=== PATIENT | female | born 1995 | race Hispanic/Latino ===

== ENCOUNTER 2016-05-17 15:54 | Emergency (ER) | payer SELFPAY ==
[2016-05-17] MEDS ORDERED: SODIUM CHLORIDE 0.9% 1000ML 1,000 ML IVS ONE ×2 (16:09→17:20)
[2016-05-17] MEDS ORDERED: ONDANSETRON INJ 4 MG/2 ML VIAL IV ONE ×2 (16:09→18:08)
[2016-05-17] MEDS ORDERED: HYDROmorphone HCL INJ 2 MG/ML VIAL IV ONE (16:09)
--- NOTE | 2016-05-17 16:12 | ED.PDOC ---
History of Present Illness - General Chief Complaint: Abdominal Pain Stated Complaint: abd & back pain Time Seen by Provider: 05/17/16 15:56 Information Source: patient, RN notes reviewed, Vital Signs reviewed Exam Limitations: no limitations - History of Present Illness Initial Comments: Patient c/o abd and back pain for 1 week that worsened today. She thought she was but started her period today. No fever, + chills, + REED, no CP, no SOB except when pain is bad. Generalized abd pain with N/V X1. Urinary frequency but not painful. Abdominal Pain Onset Location: generalized abdomen, flank Pain Radiation: no radiation Quality: severe, cramping, sharpness, waxing/waning Timing/Duration: 1 week, getting worse Improving Factors: nothing Worsening Factors: nothing Associated Symptoms: back pain, fever/chills, headache, nausea/vomiting, shortness of breath Review of Systems - Review of Systems Constitutional: States: chills. Denies: diaphoresis, fever, malaise, weakness EENTM: States: no symptoms reported Respiratory: States: short of breath - but only when abd pain is bad. Denies: cough Cardiology: States: no symptoms reported. Denies: chest pain Gastrointestinal/Abdominal: States: see HPI, abdominal pain, nausea, vomiting Genitourinary: States: see HPI, frequency. Denies: dysuria, hematuria Musculoskeletal: States: no symptoms reported Skin: States: no symptoms reported Neurological: States: headache. Denies: numbness, paresthesia, tingling, tremors, weakness Endocrine: States: no symptoms reported Hematologic/Lymphatic: States: no symptoms reported Family Medical History - Family History Mother Hx Family Hypertension: Yes Physical Exam - Physical Exam General Appearance: Alert, No apparent distress, Well Developed, Well Groomed, Well Hydrated, Well Nourished Neck: non-tender, full range of motion, supple, normal inspection Respiratory: chest non-tender, lungs clear, normal breath sounds, no respiratory distress, no accessory muscle use Cardiovascular/Chest: regular rate, rhythm, no edema, no gallop, no JVD, no murmur Gastrointestinal/Abdominal: normal bowel sounds, guarding - generalized, tenderness - Diffuse Back Exam: CVA tenderness (R), CVA tenderness (L) Extremity: normal range of motion, non-tender, normal inspection, no pedal edema Neurologic: no motor/sensory deficits, alert, normal mood/affect, oriented x 3 Skin Exam: normal color, warm/dry Lymphatic: no adenopathy Comments: Vital Signs - 24 hr 05/17/16 05/17/16 16:05 17:05 Temperature 98.4 F Pulse Rate [ 91 H 80 Apical] Respiratory 20 16 Rate Blood Pressure 131/81 115/83 [Left Arm] O2 Sat by Pulse 95 100 Oximetry Progress - Progress Progress: 05/17/16 17:20 Still no urge to urinate after 1L of NS. Will give a second liter. 05/17/16 18:07 Urine shows moderate blood without nitrates or leukocytes. Will get CT to rule out kidney stone. Patient reports pain medication helped but her pain and nausea are coming back. Will give Toradol and a second dose of Zofran. - Results/Orders Results/Orders: Laboratory Tests 05/17/16 05/17/16 05/17/16 16:10 16:21 17:40 WBC 9.0 RBC 5.35 Hgb 15.2 Hct 44.9 MCV 83.9 MCH 28.5 MCHC 33.9 RDW 13.4 Plt Count 234 MPV 7.6 Absolute Neuts (auto) 6.70 Absolute Lymphs (auto) 1.50 Absolute Monos (auto) 0.60 Absolute Eos (auto) 0.10 Absolute Basos (auto) 0.10 Neutrophils % 75.0 Lymphocytes % 16.5 L Monocytes % 6.6 Eosinophils % 1.2 Basophils % 0.7 Sodium 138 Potassium 3.6 Chloride 104 Carbon Dioxide 27 Anion Gap 10.6 L BUN 12 Creatinine 0.45 L BUN/Creatinine Ratio 26.7 H Random Glucose 110 H Serum Osmolality 276.1 Calcium 9.7 Total Bilirubin 0.6 AST 17 ALT 17 Alkaline Phosphatase 67 L Serum Total Protein 7.8 Albumin 4.3 Globulin 3.5 Albumin/Globulin Ratio 1.2 Amylase 70 Lipase 34 Urine Color Yellow Urine Appearance Clear Urine pH 6.5 Ur Specific [place] 1.020 Urine Protein Negative Urine Glucose (UA) Negative Urine Ketones Negative Urine Blood Moderate H Urine Nitrite Negative Urine Bilirubin Negative Urine Urobilinogen 0.2 Ur Leukocyte Esterase Negative Urine RBC 3-5 H Urine WBC 0 Ur Epithelial Cells 0 Urine Bacteria Rare Urine HCG, Qual Negative - EKG/XRAY/CT CT Ordered: Yes - Abd/pelvis: nl, no kidney stone Departure - Departure Clinical Impression: Urinary tract infection Qualifiers: Urinary tract infection type: site unspecified Hematuria presence: with hematuria Qualifier Code: (N39.0) Urinary tract infection, site not specified Time of Disposition: 19:54 Disposition: Discharge to Home or Self Care Condition: Good Departure Forms: ED Discharge - Pt. Copy, Patient Portal Self Enrollment Instructions: DI for Urinary Tract Infection (UTI) Diet: resume usual diet Activity: increase activity as tolerated Prescriptions: Ondansetron [Zofran Odt] 4 mg PO Q6HRS PRN #12 tab PRN Reason: Nausea/Vomiting Sulfamethoxazole-Trimethoprim [Bactrim Ds 800-160 mg] 1 tab PO BID #14 tab Home Medications: Ambulatory Orders Ibuprofen [Advil] 200 mg PO PRN PRN 05/17/16 Ondansetron [Zofran Odt] 4 mg PO Q6HRS PRN #12 tab 05/17/16 Sulfamethoxazole-Trimethoprim [Bactrim Ds 800-160 mg] 1 tab PO BID #14 tab 05/17 Additional Instructions: Follow up with your physician in 3-5 days, sooner if new or worsening symptoms
[2016-05-17] MEDS ORDERED: KETOROLAC TROMETHAMINE INJ 30 MG/ML VIAL IV ONE (18:08)
--- NOTE | 2016-05-17 19:12 | CT ---
EXAM: Abdoment/Pelvis w/o Contrast CLINICAL INDICATION: 21-year-old female with generalized abdominal pain and hematuria. COMPARISON: None. EXAMINATION: CT of the abdomen and pelvis was performed without intravenous or oral contrast. Multiplanar reformatted images were provided. FINDINGS: Evaluation of solid organ pathology is limited secondary to lack of intravenous contrast. Within these limitations, the following observations are made. Chest: Evaluation through the lung bases reveals no focal opacity, pleural effusion or pneumothorax. Heart size is within normal limits. No pericardial effusion. Abdomen and pelvis: The liver, gallbladder, pancreas, spleen, bilateral kidneys and bilateral adrenal glands are within normal limits. The vessels are normal in caliber. No abdominopelvic lymph nodes are noted to be pathologically enlarged by CT measurement criteria. The bowel is within normal limits with extensive fecal debris present throughout the large bowel. There is no abnormal bowel wall thickness or bowel dilation. No free air. No free abdominopelvic fluid collections. The appendix is poorly visualized. The osseous structures are within normal limits. IMPRESSION: 1. No specific acute intra-abdominal findings are noted to suggest etiology of the patient's abdominal pain. 2. The appendix is poorly visualized. Electronically signed by: Charlotte Calvin MD 05/17/2016 7:11 PM CDT
[2016-05-17] MEDS ORDERED: SULFA/TRIMETH 800/160 (DS) TAB 1 EA TAB PO ONE (19:55)
[2016-05-17 20:08] VITALS: BP 127/76; TEMP 97.2; O2SAT 97
== END 2016-05-17 20:09 | disposition home or self-care (01) ==
LOC: ER 15:54
DX: N39.0 Urinary tract infection, site not specified (principal)
CPT/HCPCS: 36415; 74176; 80053; 81001; 81025; 82150; 83690; 85025; J1170; J1885; J2405; J7030

== ENCOUNTER 2016-07-21 15:29 | Emergency (ER) | payer SELFPAY ==
[2016-07-21 15:50] VITALS: TEMP 99.4; O2SAT 96
[2016-07-21] MEDS: ONDANSETRON ODT 8 MG TAB SL ONE (16:39)
--- NOTE | 2016-07-21 17:46 | ED.PDOC ---
History of Present Illness - General Chief Complaint: General Stated Complaint: missed period, rlq intermittent cramping x3 weeks Time Seen by Provider: 07/21/16 15:49 Source: patient Exam Limitations: no limitations - History of Present Illness Initial Comments: the patient is a 21-year-old female presenting to the emergency room secondary to abdominal and pelvic pain present for almost 2 weeks. She has had a mild vaginal discharge. She has also missed her last menstrual cycles. This is unusual for her. She did a urine test at home last week that was negative. No vomiting or nausea. No fevers. No diarrhea. No constipation. Timing/Duration: 1 week Severity: moderate Improving Factors: nothing Worsening Factors: nothing Associated Symptoms: denies symptoms Allergies/Adverse Reactions: Allergies NO KNOWN ALLERGY Allergy (Verified 05/17/16 18:03) Home Medications: Ambulatory Orders Ibuprofen [Advil] 200 mg PO PRN PRN 05/17/16 Ondansetron [Zofran Odt] 4 mg PO Q6HRS PRN #12 tab 05/17/16 Sulfamethoxazole-Trimethoprim [Bactrim Ds 800-160 mg] 1 tab PO BID #14 tab 05/17 Review of Systems - Review of Systems Constitutional: States: no symptoms reported EENTM: States: no symptoms reported Respiratory: States: no symptoms reported Cardiology: States: no symptoms reported Gastrointestinal/Abdominal: States: abdominal pain Genitourinary: States: discharge, pain Musculoskeletal: States: no symptoms reported Skin: States: no symptoms reported Neurological: States: no symptoms reported Endocrine: States: no symptoms reported All other Systems: No Change from Baseline Past Medical History (General) - Patient Medical History Hx Seizures: No Hx Asthma: Yes Hx Congestive Heart Failure: No Hx Diabetes: No Surgical History: no surgical history - Vaccination History Hx Tetanus, Diphtheria Vaccination: No Hx Influenza Vaccination: Yes Hx Pneumococcal Vaccination: No - Social History Hx Tobacco Use: No Hx Chewing Tobacco Use: No Hx Alcohol Use: No Hx Substance Use: No Hx Depression: No - Female History Hx Last Menstrual Period: 05/17/16 Patient : No - Started menstrual cycle today Family Medical History - Family History Mother Family History: No Known Hx Family Hypertension: Yes Physical Exam - Physical Exam General Appearance: Alert, Comfortable, No apparent distress Eye Exam: bilateral normal Ears, Nose, Throat: hearing grossly normal, normal ENT inspection, normal pharynx Neck: non-tender, full range of motion, supple, normal inspection Respiratory: chest non-tender, lungs clear, normal breath sounds, no respiratory distress, no accessory muscle use Cardiovascular/Chest: normal peripheral pulses, regular rate, rhythm, no edema Peripheral Pulses: radial,right: 2+, radial,left: 2+, dorsalis pedis,right: 2+, dorsalis pedis,left: 2+, posterior tibialis,right: 2+, posterior tibialis,left: 2+ Gastrointestinal/Abdominal: soft, other - the patient does have suprapubic discomfort to palpation. No obvious palpable masses. Rectal Exam: deferred, other - pelvic exam was performed. the patient does have mild cervical motion tenderness. She also has moderate discomfort palpation over the fundus. No definite rebound or peritoneal signs. swabs were taken. she does have a fairly thick white discharge. Back Exam: normal inspection, no CVA tenderness, no vertebral tenderness Extremity: normal range of motion, non-tender, normal inspection, no pedal edema , normal capillary refill Neurologic: solar tech II-XII nml as tested, alert, normal mood/affect, oriented x 3 Skin Exam: normal color Comments: Vital Signs - 24 hr 07/21/16 07/21/16 15:35 16:30 Temperature 99.4 F 99.4 F Pulse Rate [ 83 85 LEFT BRACHIAL] Respiratory 20 20 Rate Blood Pressure 136/80 126/78 [LEFT BRACHIAL] O2 Sat by Pulse 96 96 Oximetry Progress - Progress Progress: 07/21/16 17:50 the patient is a 21-year-old female presenting with a new diagnosis of along with pelvic pain and some vaginal discharge. she does appear to have a mild cervicitis and early pelvic inflammatory disease. Externally the patient does have a few spots that are consistent with a yeast infection. she did receive a dose of Diflucan here. the gonorrhea and chlamydia tests are send out tests and the patient is being dosed empirically with rocephin and azithromycin. Gestational sac size is consistent with the hCG level which is also consistent with a gestational age of approximately 4-1/2 weeks. she needs to avoid sex for the next 3 weeks. She needs to follow up with her primary care doctor on Friday for a repeat serum hCG, to make sure levels are rising appropriately, and the patient's discomfort is improving. ER warnings are given for any worsening. she needs to get set up with an special events fundraiser as well. She can also start taking gummy vitamins daily. - Results/Orders Results/Orders: Laboratory Tests 07/21/16 07/21/16 07/21/16 15:53 16:00 16:32 WBC RBC Hgb Hct MCV MCH MCHC RDW Plt Count MPV Absolute Neuts (auto) Absolute Lymphs (auto) Absolute Monos (auto) Absolute Eos (auto) Absolute Basos (auto) Neutrophils % Lymphocytes % Monocytes % Eosinophils % Basophils % PT 11.9 INR 1.050 PTT (SP) 31.7 Sodium Potassium Chloride Carbon Dioxide Anion Gap BUN Creatinine BUN/Creatinine Ratio Random Glucose Serum Osmolality Calcium Total Bilirubin AST ALT Alkaline Phosphatase Serum Total Protein Albumin Globulin Albumin/Globulin Ratio Beta HCG, Quant Urine Color Yellow Urine Appearance Clear Urine pH 5.0 Ur Specific [place] >= 1.030 Urine Protein Negative Urine Glucose (UA) Negative Urine Ketones Negative Urine Blood Negative Urine Nitrite Negative Urine Bilirubin Negative Urine Urobilinogen 0.2 Ur Leukocyte Esterase Negative Urine RBC 0 Urine WBC 0 Ur Epithelial Cells 1-3 Urine Bacteria 0 Urine HCG, Qual Positive 07/21/16 07/21/16 07/21/16 16:32 16:32 16:32 WBC 8.5 RBC 4.93 Hgb 13.9 Hct 41.3 MCV 83.7 MCH 28.3 MCHC 33.8 RDW 14.5 Plt Count 235 MPV 7.3 L Absolute Neuts (auto) 6.40 Absolute Lymphs (auto) 1.40 Absolute Monos (auto) 0.70 Absolute Eos (auto) 0.10 Absolute Basos (auto) 0.00 Neutrophils % 74.6 Lymphocytes % 16.7 L Monocytes % 7.7 Eosinophils % 0.6 L Basophils % 0.4 PT INR PTT (SP) Sodium 137 Potassium 3.5 L Chloride 106 Carbon Dioxide 24 Anion Gap 10.5 L BUN 12 Creatinine 0.52 L BUN/Creatinine Ratio 23.1 H Random Glucose 98 Serum Osmolality 273.6 L Calcium 9.0 Total Bilirubin 1.5 H AST 17 ALT 13 Alkaline Phosphatase 59 L Serum Total Protein 7.5 Albumin 4.1 Globulin 3.4 Albumin/Globulin Ratio 1.2 Beta HCG, Quant 1133.9 H Urine Color Urine Appearance Urine pH Ur Specific [place] Urine Protein Urine Glucose (UA) Urine Ketones Urine Blood Urine Nitrite Urine Bilirubin Urine Urobilinogen Ur Leukocyte Esterase Urine RBC Urine WBC Ur Epithelial Cells Urine Bacteria Urine HCG, Qual pelvic ultrasound shows a 4.5 mm intrauterine gestational sac. She does have a complex ovarian cyst on the right. No evidence of any extra uterine . No evidence of abscess formation. Departure - Departure Clinical Impression: Cervicitis, acute, non-specific Disposition: Discharge to Home or Self Care Condition: Fair Departure Forms: ED Discharge - Pt. Copy, Patient Portal Self Enrollment Instructions: DI for Acute Cervicitis Diet: regular diet Activity: increase activity as tolerated Home Medications: Ambulatory Orders Ibuprofen [Advil] 200 mg PO PRN PRN 05/17/16 Ondansetron [Zofran Odt] 4 mg PO Q6HRS PRN #12 tab 05/17/16 Sulfamethoxazole-Trimethoprim [Bactrim Ds 800-160 mg] 1 tab PO BID #14 tab 05/17 Additional Instructions: the patient is a 21-year-old female presenting with a new diagnosis of along with pelvic pain and some vaginal discharge. she does appear to have a mild cervicitis and early pelvic inflammatory disease. Externally the patient does have a few spots that are consistent with a yeast infection. she did receive a dose of Diflucan here. the gonorrhea and chlamydia tests are send out tests and the patient is being dosed empirically with rocephin and azithromycin. Gestational sac size is consistent with the hCG level which is also consistent with a gestational age of approximately 4-1/2 weeks. she needs to avoid sex for the next 3 weeks. She needs to follow up with her primary care doctor on Friday for a repeat serum hCG, to make sure levels are rising appropriately, and the patient's discomfort is improving. ER warnings are given for any worsening. she needs to get set up with an special events fundraiser as well. She can also start taking gummy vitamins daily.
[2016-07-21] MEDS: FLUCONAZOLE 100 MG TAB PO ONE (17:51)
[2016-07-21] MEDS: AZITHROMYCIN 250 MG TAB PO ONE (17:52)
--- NOTE | 2016-07-21 17:58 | US ---
EXAM: Pelvic,Non-OB CLINICAL INDICATION: 21-year-old female with abdominal pain and positive hCG. LMP 05/10/2016. Quantitative beta hCG 1100. COMPARISON: None. TECHNIQUE: Limited transvaginal imaging was performed per service request. Transabdominal imaging was not performed. FINDINGS: The uterus measures 8.9 x 6.1 x 5.3 cm. Focal area of echogenicity is identified present at the uterine fundus, a finding which may represent gestational sac measuring 3 mm corresponding to gestational age of four weeks and six days. No intrauterine gestational contents are identified including yolk sac or pole. The ovaries have a normal sonographic appearance. The right ovary measures 28 x 39 x 18 mm. Focal area of echogenicity present within the RIGHT ovary measuring 17 mm with rim of increased echogenicity may represent a corpus luteum. The left ovary measures 23 x 14 x 22 mm. No adnexal masses are identified. No free pelvic fluid is seen. IMPRESSION: 1. Possible very small intrauterine gestational sac measuring 3 mm corresponding to gestational age of four weeks and six days. Pseudogestational sac in the setting of ectopic is considered in the differential. 2. No additional intrauterine gestational contents are identified including yolk sac or pole at this time. Differential considerations may include too early to characterize, failed first trimester and ectopic . Correlation with beta hCG levels and serial sonography is recommended. Electronically signed by: Charlotte Calvin MD 07/21/2016 5:58 PM CDT Workstation: [id number]
[2016-07-21] MEDS: cefTRIAXone SODIUM 1 GM VIAL IM ONE (18:03)
[2016-07-21 18:28] VITALS: BP 124/72
[2016-07-21] MEDS ORDERED: LIDOCAINE 1% 10 ML VIAL INJ ONE (19:22)
== END 2016-07-21 18:25 | disposition home or self-care (01) ==
LOC: ER 15:29
DX: O23.511 Infections of cervix in pregnancy, first trimester (principal); O34.81 Maternal care for other abnormalities of pelvic organs, first trimester; N83.201 Unspecified ovarian cyst, right side; Z3A.00 Weeks of gestation of pregnancy not specified
CPT/HCPCS: 36415; 76856; 80053; 81001; 81025; 84702; 85025; 85610; 85730; 87210; 87491; 87591; J0696; Q0144

== ENCOUNTER 2016-07-26 12:22 | Emergency (ER) | payer MEDICAID ==
--- NOTE | 2016-07-26 12:53 | ED.PDOC ---
History of Present Illness - General Chief Complaint: Problem Stated Complaint: Thick white vaginal discharge that is worsening Time Seen by Provider: 07/26/16 12:43 Source: patient, RN notes reviewed, Vital Signs reviewed, old records Exam Limitations: no limitations - History of Present Illness Initial Comments: Patient here with c/o a thick, white vaginal discharge that has worsened over the past week. She was seen here ~1 week ago with negative wet prep. She was unable to see OB due to not having her Medicaid # yet. She is rescheduled for Friday. She also is reporting that her throat has been really dry. Not painful. She thinks it is due to the weather but does not know what she can take. She is ~5 weeks . Timing/Duration: week, getting worse Quality: moderate Onset Location: vaginal Radiation: none Activites at Onset: none Sexual intercourse history: single partner Improving Factors: nothing Worsening Factors: nothing Associated Symptoms: denies symptoms Allergies/Adverse Reactions: Allergies NO KNOWN ALLERGY Allergy (Verified 05/17/16 18:03) Home Medications: Ambulatory Orders Ibuprofen [Advil] 200 mg PO PRN PRN 05/17/16 Ondansetron [Zofran Odt] 4 mg PO Q6HRS PRN #12 tab 05/17/16 Sulfamethoxazole-Trimethoprim [Bactrim Ds 800-160 mg] 1 tab PO BID #14 tab 05/17 Clotrimazole Vaginal [Clotrimazole] 2 % VAG QPM #1 tube 07/26/16 Vitamin [Calna] 1 tab PO DAILY #90 tab 07/26/16 Review of Systems - Review of Systems Constitutional: States: no symptoms reported EENTM: States: see HPI. Denies: throat pain, throat swelling Respiratory: States: no symptoms reported Cardiology: States: no symptoms reported Gastrointestinal/Abdominal: States: no symptoms reported Genitourinary: States: see HPI, discharge - Thick with lots of white chunks All other Systems: No Change from Baseline Past Medical History (General) - Patient Medical History Hx Seizures: No Hx Asthma: Yes Hx Congestive Heart Failure: No Hx Diabetes: No - Vaccination History Hx Tetanus, Diphtheria Vaccination: No Hx Influenza Vaccination: Yes Hx Pneumococcal Vaccination: No - Social History Hx Tobacco Use: No Hx Chewing Tobacco Use: No Hx Alcohol Use: No Hx Substance Use: No Hx Depression: No - Female History Hx Last Menstrual Period: 05/17/16 Patient : No - Started menstrual cycle today Family Medical History - Family History Mother Family History: No Known Hx Family Hypertension: Yes Physical Exam - Physical Exam General Appearance: Alert, Comfortable, No apparent distress, Well Developed, Well Groomed, Well Hydrated, Well Nourished Eyes, Ears, Nose, Throat Exam: normal ENT inspection, pharynx normal Neck: full range of motion, supple, other - No cervical adenopathy Neurologic: alert, normal mood/affect, oriented x 3 Skin Exam: normal color, warm/dry Progress - Progress Progress: 07/26/16 12:56 Will defer pelvic exam at this time as she had one 1 week ago. Will treat with vaginal Clotrimazole and start vitamins Recommended Benadryl and lozenges for throat. Patient is in agreement with plan Departure - Departure Clinical Impression: Candidiasis of vagina, , Allergic pharyngitis Time of Disposition: 12:57 Disposition: Discharge to Home or Self Care Condition: Good Departure Forms: ED Discharge - Pt. Copy, Patient Portal Self Enrollment Instructions: DI for Vaginal Yeast Infection Diet: resume usual diet Activity: increase activity as tolerated Prescriptions: Clotrimazole Vaginal [Clotrimazole] 2 % VAG QPM #1 tube Vitamin [Calna] 1 tab PO DAILY #90 tab Home Medications: Ambulatory Orders Ibuprofen [Advil] 200 mg PO PRN PRN 05/17/16 Ondansetron [Zofran Odt] 4 mg PO Q6HRS PRN #12 tab 05/17/16 Sulfamethoxazole-Trimethoprim [Bactrim Ds 800-160 mg] 1 tab PO BID #14 tab 05/17 Clotrimazole Vaginal [Clotrimazole] 2 % VAG QPM #1 tube 07/26/16 Vitamin [Calna] 1 tab PO DAILY #90 tab 07/26/16 Additional Instructions: Keep scheduled follow up with OB next week.
[2016-07-26 12:56] VITALS: BP 135/74; TEMP 98.8
[2016-07-26 17:23] VITALS: O2SAT 95
== END 2016-07-26 13:30 | disposition home or self-care (01) ==
LOC: ER 12:22
DX: O98.811 Other maternal infectious and parasitic diseases complicating pregnancy, first trimester (principal); J02.9 Acute pharyngitis, unspecified; J45.909 Unspecified asthma, uncomplicated; B37.3 Candidiasis of vulva and vagina; Z3A.01 Less than 8 weeks gestation of pregnancy

== ENCOUNTER 2016-08-07 00:11 | Emergency (ER) | payer MEDICAID ==
--- NOTE | 2016-08-07 00:18 | ED.PDOC ---
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 Timing/Duration: other - 2 days ago Quality: mild, cramping Radiation: none Activites at Onset: none Prior abdominal problems: none Sexual intercourse history: single partner Improving Factors: nothing Worsening Factors: nothing Associated Symptoms: denies symptoms Allergies/Adverse Reactions: Allergies NO KNOWN ALLERGY Allergy (Verified 08/07/16 00:26) Home Medications: Ambulatory Orders Vitamin [Calna] 1 tab PO DAILY #90 tab 07/26/16 Review of Systems - Review of Systems Constitutional: States: no symptoms reported EENTM: States: no symptoms reported Respiratory: States: no symptoms reported Cardiology: States: no symptoms reported Gastrointestinal/Abdominal: States: no symptoms reported Genitourinary: States: see HPI Musculoskeletal: States: no symptoms reported Skin: States: no symptoms reported Neurological: States: no symptoms reported Endocrine: States: no symptoms reported Hematologic/Lymphatic: States: no symptoms reported Past Medical History (General) - Patient Medical History Hx Seizures: No Hx Asthma: Yes Hx Congestive Heart Failure: No Hx Diabetes: No - Vaccination History Hx Tetanus, Diphtheria Vaccination: No Hx Influenza Vaccination: Yes Hx Pneumococcal Vaccination: No - Social History Hx Tobacco Use: No Hx Chewing Tobacco Use: No Hx Alcohol Use: No Hx Substance Use: No Hx Depression: No - Activities of Daily Living Patient Lives Alone: No - family - Female History Hx Last Menstrual Period: 06/05/16 Patient : Yes - 8 weeks ega Family Medical History - Family History Mother Family History: No Known Hx Family Hypertension: Yes - mom Physical Exam - Physical Exam General Appearance: Alert, Comfortable, No apparent distress Eyes, Ears, Nose, Throat Exam: PERRL/EOMI, normal ENT inspection Neck: non-tender, full range of motion, supple Cardiovascular/Respiratory: regular rate, rhythm, no M/R/G, normal peripheral pulses, normal breath sounds Gastrointestinal/Abdominal: normal bowel sounds, non tender, soft, no organomegaly Pelvic Exam: external exam normal, speculum exam normal, no cerv. 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 - Results/Orders Results/Orders: Laboratory Tests 08/07/16 08/07/16 08/07/16 00:25 00:25 00:25 WBC 9.2 RBC 5.02 Hgb 14.0 Hct 42.0 MCV 83.6 MCH 27.8 MCHC 33.3 RDW 14.1 Plt Count 282 MPV 7.6 Absolute Neuts (auto) 5.60 Absolute Lymphs (auto) 2.50 Absolute Monos (auto) 0.80 Absolute Eos (auto) 0.20 Absolute Basos (auto) 0.10 Neutrophils % 60.7 Lymphocytes % 27.5 Monocytes % 9.1 H Eosinophils % 2.0 Basophils % 0.7 Sodium 135 Potassium 3.3 L Chloride 104 Carbon Dioxide 25 Anion Gap 9.3 L BUN 13 Creatinine 0.52 L BUN/Creatinine Ratio 25.0 H Random Glucose 96 Serum Osmolality 270.1 L Calcium 9.3 Beta HCG, Quant Urine Color Urine Appearance Urine pH Ur Specific [place] Urine Protein Urine Glucose (UA) Urine Ketones Urine Blood Urine Nitrite Urine Bilirubin Urine Urobilinogen Ur Leukocyte Esterase Urine RBC Urine WBC Ur Epithelial Cells Urine Bacteria Patient ABO/Rh O POSITIVE 08/07/16 08/07/16 00:25 00:37 WBC RBC Hgb Hct MCV MCH MCHC RDW Plt Count MPV Absolute Neuts (auto) Absolute Lymphs (auto) Absolute Monos (auto) Absolute Eos (auto) Absolute Basos (auto) Neutrophils % Lymphocytes % Monocytes % Eosinophils % Basophils % Sodium Potassium Chloride Carbon Dioxide Anion Gap BUN Creatinine BUN/Creatinine Ratio Random Glucose Serum Osmolality Calcium Beta HCG, Quant 85650.0 H Urine Color Yellow Urine Appearance Clear Urine pH 6.0 Ur Specific [place] 1.015 Urine Protein Negative Urine Glucose (UA) Negative Urine Ketones 15 H Urine Blood Large H Urine Nitrite Negative Urine Bilirubin Negative Urine Urobilinogen 0.2 Ur Leukocyte Esterase Negative Urine RBC 5-10 H Urine WBC 0-1 Ur Epithelial Cells 3-5 Urine Bacteria 1+ Patient ABO/Rh Departure - Departure Clinical Impression: Threatened , with 8 completed weeks gestation Time of Disposition: 02:12 Disposition: Discharge to Home or Self Care Condition: Fair Departure Forms: ED Discharge - Pt. 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
[2016-08-07] MEDS ORDERED: LACTATED RINGERS 1,000 ML IVS ONE (00:19)
[2016-08-07 00:26] VITALS: TEMP 98.4
[2016-08-07 02:24] VITALS: BP 110/65; O2SAT 98
== END 2016-08-07 02:24 | disposition home or self-care (01) ==
LOC: ER 00:11
DX: O20.0 Threatened abortion (principal); Z3A.08 8 weeks gestation of pregnancy
CPT/HCPCS: 36415; 80048; 81001; 84702; 85025; 86900; 86901; J7120

== ENCOUNTER → 2016-08-09 | Outpatient (CLI) | payer MEDICAID | END | disposition home or self-care (01) | LOC: LAB.O 08:37 | PROVIDERS: ATTEND Obstetrics & Gynecology | DX: O20.0 Threatened abortion (principal) ==

== ENCOUNTER 2016-08-14 07:01 | Emergency (ER) | payer MEDICAID ==
--- NOTE | 2016-08-14 07:30 | ED.PDOC ---
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 She saw her OB who per patient told her if she was having pain this morning to go to ER in [place]. This morning she is having bleeding and cramping with burning pain. She used 3 pads overnight. She is concerned about the pain but has only taken one menstrual cramping pill, yesterday. She does report her pain/cramping is not as bad as it was yesterday. Timing/Duration: yesterday, other - improving Quality: severe, burning, cramping Onset Location: suprapubic Radiation: none Prior abdominal problems: similar symptoms Sexual intercourse history: single partner Improving Factors: nothing Worsening Factors: nothing Associated Symptoms: denies symptoms Allergies/Adverse Reactions: Allergies NO KNOWN ALLERGY Allergy (Verified 08/07/16 00:26) Home Medications: Ambulatory Orders Vitamin [Calna] 1 tab PO DAILY #90 tab 07/26/16 Review of Systems - Review of Systems Constitutional: States: no symptoms reported EENTM: States: no symptoms reported Respiratory: States: no symptoms reported Cardiology: States: no symptoms reported Gastrointestinal/Abdominal: States: see HPI Genitourinary: States: see HPI. Denies: dysuria, frequency Musculoskeletal: States: no symptoms reported Skin: States: no symptoms reported Neurological: States: no symptoms reported All other Systems: No Change from Baseline Past Medical History (General) - Patient Medical History Hx Seizures: No Hx Stroke: No Hx Dementia: No Hx Asthma: Yes Hx of COPD: No Hx Cardiac Disorders: No Hx Congestive Heart Failure: No Hx Pacemaker: No Hx Hypertension: No Hx Thyroid Disease: No Hx Diabetes: No Hx Gastroesophageal Reflux: No Hx Renal Disease: No Hx of HIV: No Hx MRSA: No - Vaccination History Hx Tetanus, Diphtheria Vaccination: No Hx Influenza Vaccination: Yes Hx Pneumococcal Vaccination: No - Social History Hx Tobacco Use: No Hx Chewing Tobacco Use: No Hx Alcohol Use: No Hx Substance Use: No Hx Substance Use Treatment: No Hx Depression: No Hx Physical Abuse: No Hx Emotional Abuse: No Hx Suspected Abuse: No - Female History Hx Last Menstrual Period: 06/05/16 Patient : Yes - 8 weeks ega Expected Date of Delivery:: 03/23/17 Family Medical History - Family History Mother Family History: No Known Living Status: Still Living Hx Family Hypertension: Yes - mom Physical Exam - Physical Exam General Appearance: Alert, Comfortable, No apparent distress, Well Developed, Well Groomed, Well Hydrated, Well Nourished Neck: full range of motion, supple, normal inspection Cardiovascular/Respiratory: no respiratory distress Gastrointestinal/Abdominal: normal bowel sounds, soft, no organomegaly, no pulsatile mass, tenderness - Mild, suprapubic without guarding or rebound Pelvic Exam: other - defered due to recent miscarriage and exam by OB Neurologic: alert, normal mood/affect, oriented x 3 Skin Exam: normal color, warm/dry Departure - Departure Clinical Impression: Miscarriage Time of Disposition: 07:32 Disposition: Discharge to Home or Self Care Condition: Fair Instructions: DI for Miscarriage Diet: resume usual diet Activity: increase activity as tolerated Referrals: SANDIE ZAPATA MD/OBGYN [Primary Care Provider] - 1-5 Days Home Medications: Ambulatory Orders Vitamin [Calna] 1 tab PO DAILY #90 tab 07/26/16 Additional Instructions: Call OB this morning for further instructions/advise and possible follow up
[2016-08-14 07:32] VITALS: BP 121/84; TEMP 98.1; O2SAT 95
== END 2016-08-14 08:15 | disposition home or self-care (01) ==
LOC: ER 07:01
DX: O03.9 Complete or unspecified spontaneous abortion without complication (principal); J45.909 Unspecified asthma, uncomplicated

== ENCOUNTER 2016-08-17 08:48 | Emergency (ER) | payer MEDICAID ==
--- NOTE | 2016-08-17 09:09 | ED.PDOC ---
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 Timing/Duration: other - 5 days ago Quality: cramping, waxing/waning Onset Location: other - uterus Radiation: none Activites at Onset: none Prior abdominal problems: similar symptoms - see hpi Allergies/Adverse Reactions: Allergies NO KNOWN ALLERGY Allergy (Verified 08/07/16 00:26) Home Medications: Ambulatory Orders Vitamin [Calna] 1 tab PO DAILY #90 tab 07/26/16 Review of Systems - Review of Systems Constitutional: States: no symptoms reported EENTM: States: no symptoms reported Respiratory: States: no symptoms reported Cardiology: States: no symptoms reported Gastrointestinal/Abdominal: States: no symptoms reported Genitourinary: States: see HPI Musculoskeletal: States: no symptoms reported Skin: States: no symptoms reported Neurological: States: no symptoms reported Endocrine: States: no symptoms reported Past Medical History (General) - Patient Medical History Hx Seizures: No Hx Stroke: No Hx Dementia: No Hx Asthma: Yes Hx of COPD: No Hx Cardiac Disorders: No Hx Congestive Heart Failure: No Hx Pacemaker: No Hx Hypertension: No Hx Thyroid Disease: No Hx Diabetes: No Hx Gastroesophageal Reflux: No Hx Renal Disease: No Hx of HIV: No Hx MRSA: No Surgical History: no surgical history - Vaccination History Hx Tetanus, Diphtheria Vaccination: No Hx Influenza Vaccination: Yes Hx Pneumococcal Vaccination: No - Social History Hx Tobacco Use: No Hx Chewing Tobacco Use: No Hx Alcohol Use: No Hx Substance Use: No Hx Substance Use Treatment: No Hx Depression: No Hx Physical Abuse: No Hx Emotional Abuse: No Hx Suspected Abuse: No - Activities of Daily Living Patient Lives Alone: No - - Female History Hx Last Menstrual Period: 06/05/16 Patient : Yes - 10 weeks ega Expected Date of Delivery:: 03/23/17 Hx Gestational Age: 10 - weeks Family Medical History - Family History Mother Family History: No Known Living Status: Still Living Hx Family Hypertension: Yes - mom Physical Exam - Physical Exam General Appearance: Alert, Comfortable, No apparent distress Eyes, Ears, Nose, Throat Exam: PERRL/EOMI, normal ENT inspection, TMs normal Neck: non-tender, full range of motion, supple Cardiovascular/Respiratory: regular rate, rhythm, no M/R/G, normal peripheral pulses, no JVD, no respiratory distress Gastrointestinal/Abdominal: normal bowel sounds, soft, no organomegaly, tenderness - lower abdomen,uterus firm Pelvic Exam: other - declined exam wants to go to her ob in [facility] Exam: normal inspection, no CVA tenderness Extremity: normal range of motion, non-tender, no pedal edema, no calf tenderness Neurologic: alert, normal mood/affect, oriented x 3 Skin Exam: normal color, warm/dry Lymphatic: no adenopathy Progress - Progress Progress: 08/17/16 09:32 Vital Signs - 8 hr 08/17/16 09:05 Temperature 97.6 F Pulse Rate [ 75 left brachial] Respiratory 20 Rate Blood Pressure 121/64 [left brachial] O2 Sat by Pulse 97 Oximetry 08/17/16 09:32 Patient wants to leave AMA and go see her OB in [facility] ,declined to have blood drawn. 08/17/16 09:36 Departure - Departure Clinical Impression: Spontaneous in first trimester Time of Disposition: 09:35 - LEFT AMA WANTS TO GO TO SEE HER OB IN [place], [place] DR. ZAPATA Disposition: Left Against Medical Advice Condition: Fair Departure Forms: Patient Portal Self Enrollment Referrals: SANDIE ZAPATA MD/OBGYN [Primary Care Provider] - 1-2 Weeks Home Medications: Ambulatory Orders Vitamin [Calna] 1 tab PO DAILY #90 tab 07/26/16
[2016-08-17] MEDS ORDERED: KETOROLAC TROMETHAMINE INJ 30 MG/ML VIAL IV ONE (09:10)
[2016-08-17 09:12] VITALS: BP 121/64; TEMP 97.6; O2SAT 97
== END 2016-08-17 09:26 | disposition left against medical advice (07) ==
LOC: ER 08:48
DX: O03.9 Complete or unspecified spontaneous abortion without complication (principal); J45.909 Unspecified asthma, uncomplicated; Z53.29 Procedure and treatment not carried out because of patient's decision for other reasons

== ENCOUNTER 2016-11-09 23:52 | Emergency (ER) | payer MEDICAID ==
[2016-11-10 00:18] VITALS: TEMP 98.5
[2016-11-10] MEDS ORDERED: LIDOCAINE 1% W/ EPINEPHRINE 20 ML VIAL INJ ONE ×2 (00:34→01:26)
[2016-11-10] MEDS ORDERED: CHLORHEXIDINE GLUCONATE 4 % 15 ML UD TOP ONE (00:34)
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
[2016-11-10] MEDS ORDERED: NEOMYCIN-BACITRACIN-POLYMYXIN 0.9 GM UD TOP ONE (01:25)
[2016-11-10 01:57] VITALS: BP 123/72; O2SAT 97
== END 2016-11-10 01:45 | disposition home or self-care (01) ==
LOC: ER 23:52
DX: O26.899 Other specified pregnancy related conditions, unspecified trimester (principal); S81.811A Laceration without foreign body, right lower leg, initial encounter; S10.91XA Abrasion of unspecified part of neck, initial encounter; S00.83XA Contusion of other part of head, initial encounter; Z3A.00 Weeks of gestation of pregnancy not specified; Y09 Assault by unspecified means; Y92.9 Unspecified place or not applicable

== ENCOUNTER 2016-11-22 10:00 | Emergency (ER) | payer MEDICAID, OTHER ==
--- NOTE | 2016-11-22 10:56 | ED.PDOC ---
History of Present Illness - General Chief Complaint: GI Problem Time Seen by Provider: 11/22/16 10:52 Source: patient Exam Limitations: no limitations - History of Present Illness Initial Comments: Patient presents with multiple episodes of nausea and vomiting since last night. She also has intermittent abdominal cramping that is not related to a vomiting episode. Last week she had diarrhea "all week". Non-bloody. No dysuria , anuria, hematuria, nocturia. No recent travel nor new eating establishments. No similarly sick contacts. No fever. No other complaints. Timing/Duration: 1 week Severity: moderate Improving Factors: nothing, eating Associated Symptoms: nausea/vomiting Allergies/Adverse Reactions: Allergies NO KNOWN ALLERGY Allergy (Verified 08/07/16 00:26) Home Medications: Ambulatory Orders Ondansetron [Zofran Odt] 4 mg PO Q4HR PRN #10 tab 11/22/16 Review of Systems - Review of Systems Constitutional: States: no symptoms reported EENTM: States: no symptoms reported Respiratory: States: no symptoms reported Cardiology: States: no symptoms reported Gastrointestinal/Abdominal: States: see HPI Genitourinary: States: no symptoms reported Musculoskeletal: States: no symptoms reported Skin: States: no symptoms reported Neurological: States: no symptoms reported Endocrine: States: no symptoms reported Hematologic/Lymphatic: States: no symptoms reported Past Medical History (General) - Patient Medical History Hx Seizures: No Hx Stroke: No Hx Dementia: No Hx Asthma: Yes Hx of COPD: No Hx Cardiac Disorders: No Hx Congestive Heart Failure: No Hx Pacemaker: No Hx Hypertension: No Hx Thyroid Disease: No Hx Diabetes: No Hx Gastroesophageal Reflux: No Hx Renal Disease: No Hx Cancer: No Hx of HIV: No Hx Hepatitis C: No Hx MRSA: No Surgical History: no surgical history - Vaccination History Hx Tetanus, Diphtheria Vaccination: Yes Hx Influenza Vaccination: No Hx Pneumococcal Vaccination: No - Social History Hx Tobacco Use: No Hx Chewing Tobacco Use: No Hx Alcohol Use: Yes Hx Substance Use: No Hx Substance Use Treatment: No Hx Depression: No Hx Physical Abuse: No Hx Emotional Abuse: No Hx Suspected Abuse: No - Female History Hx Last Menstrual Period: 06/05/16 Patient : Yes Expected Date of Delivery:: 03/23/17 Hx Gestational Age: 10 - weeks Family Medical History - Family History Mother Family History: No Known Living Status: Still Living Hx Family Hypertension: Yes - mom Physical Exam - Physical Exam General Appearance: Alert Respiratory: lungs clear, normal breath sounds Cardiovascular/Chest: normal peripheral pulses, regular rate, rhythm, no edema Gastrointestinal/Abdominal: normal bowel sounds, non tender, soft Skin Exam: normal color Lymphatic: no adenopathy Progress - Progress Progress: 11/22/16 15:15 NS two liters IV. Patient did not have any vomiting and ate some food while here. Laboratory Tests 11/22/16 11/22/16 11/22/16 10:20 10:21 11:00 WBC 6.1 RBC 5.15 Hgb 14.4 Hct 42.2 MCV 82.0 MCH 28.0 MCHC 34.2 RDW 14.3 Plt Count 282 MPV 7.6 Absolute Neuts (auto) 4.20 Absolute Lymphs (auto) 1.30 Absolute Monos (auto) 0.50 Absolute Eos (auto) 0.10 Absolute Basos (auto) 0.00 Neutrophils % 67.7 Lymphocytes % 21.5 Monocytes % 7.9 Eosinophils % 2.2 Basophils % 0.7 Sodium Potassium Chloride Carbon Dioxide Anion Gap BUN Creatinine BUN/Creatinine Ratio Random Glucose Serum Osmolality Calcium Total Bilirubin AST ALT Alkaline Phosphatase Serum Total Protein Albumin Globulin Albumin/Globulin Ratio Lipase TSH Urine Color Yellow Urine Appearance Clear Urine pH 5.5 Ur Specific Yolyn 1.025 Urine Protein Negative Urine Glucose (UA) Negative Urine Ketones Negative Urine Blood Trace-intact H Urine Nitrite Negative Urine Bilirubin Negative Urine Urobilinogen 0.2 Ur Leukocyte Esterase Negative Urine RBC 1-3 Urine WBC 1-3 Ur Epithelial Cells 5-10 Urine Bacteria 1+ Urine HCG, Qual Negative 11/22/16 11/22/16 11:00 11:00 WBC RBC Hgb Hct MCV MCH MCHC RDW Plt Count MPV Absolute Neuts (auto) Absolute Lymphs (auto) Absolute Monos (auto) Absolute Eos (auto) Absolute Basos (auto) Neutrophils % Lymphocytes % Monocytes % Eosinophils % Basophils % Sodium 134 L Potassium 3.7 Chloride 105 Carbon Dioxide 23 Anion Gap 9.7 L BUN 15 Creatinine 0.54 L BUN/Creatinine Ratio 27.8 H Random Glucose 99 Serum Osmolality 269.1 L Calcium 9.3 Total Bilirubin 0.8 AST 16 ALT 16 Alkaline Phosphatase 59 L Serum Total Protein 7.7 Albumin 4.0 Globulin 3.7 H Albumin/Globulin Ratio 1.1 Lipase 30 TSH 1.01 Urine Color Urine Appearance Urine pH Ur Specific Yolyn Urine Protein Urine Glucose (UA) Urine Ketones Urine Blood Urine Nitrite Urine Bilirubin Urine Urobilinogen Ur Leukocyte Esterase Urine RBC Urine WBC Ur Epithelial Cells Urine Bacteria Urine HCG, Qual Departure - Departure Clinical Impression: Vomiting Disposition: Discharge to Home or Self Care Condition: Good Departure Forms: ED Discharge - Pt. Copy, Patient Portal Self Enrollment Diet: resume usual diet Activity: increase activity as tolerated Prescriptions: Ondansetron [Zofran Odt] 4 mg PO Q4HR PRN #10 tab PRN Reason: Vomiting Home Medications: Ambulatory Orders Ondansetron [Zofran Odt] 4 mg PO Q4HR PRN #10 tab 11/22/16
[2016-11-22] MEDS ORDERED: SODIUM CHLORIDE 0.9% 1000ML 1,000 ML IVS ONE ×2 (11:15→12:26)
[2016-11-22 15:10] VITALS: TEMP 98
[2016-11-22 15:44] VITALS: BP 125/69; O2SAT 98
== END 2016-11-22 15:40 | disposition home or self-care (01) ==
LOC: ER 10:00
DX: R11.10 Vomiting, unspecified (principal)
CPT/HCPCS: 36415; 80053; 81001; 81025; 83690; 84443; 85025; J7030